=== PATIENT | female | born 1955 | race Caucasian/White ===

== ENCOUNTER 2020-03-11 10:04 | Outpatient (CLI) | payer MEDICARE, SELFPAY ==
--- NOTE | ~2020-03-11 | MM_ITS ---
EXAMINATION: MM screening lizet BI w diana HISTORY: Screening mammogram TECHNIQUE: Craniocaudal and mediolateral oblique 3-D tomosynthesis images were obtained and synthetic 2-D images were generated. CAD analysis was submitted and interpreted. COMPARISON: 01/03/2015, 03/06/2012 bilateral digital screening mammogram examinations BREAST PARENCHYMAL COMPOSITION: There are scattered areas of fibroglandular density. FINDINGS: There is no evidence of suspicious mass, calcification, or architectural distortion to sugg est malignancy in either breast. There has been no suspicious interval change. IMPRESSION: 1. No mammographic evidence of malignancy. 2. Recommend routine screening mammography in one year. BI-RADS Category 1: Negative Reviewed, dictated and finalized at location A.
--- NOTE | ~2020-03-11 | DEXA_ITS ---
Bone Density Report Name: Naheed Orellana Age: 64 Sex: Female Ethnicity: White Date of : 1955 Indication: postmenopausal; Referring Provider: MERCED*, JAN Cannon Study: Bone densitometry was performed. Exam Date: March 11, 2020 Accession number: [id number] Bone Density: Region BMD T-score Z-score Classification AP Spine (L1, L2, L3) 1.441 3.8 5.7 Normal Femoral Neck (Left) 0.849 0.0 1.6 Normal Total Hip (Left) 1.104 1.3 2.7 Normal Total Hip Bilateral Avg 1.089 1.2 2.6 Normal Femoral Neck (Right) 0.904 0.5 2.1 Normal Total Hip (Right) 1.072 1.1 2.4 Normal World Health Organization criteria for BMD impression classify patients as: Normal (T-score at or above -1.0), Osteopenia (T-score between -1.0 and -2.5), or Osteoporosis (T-score at or below -2.5). 10-year Fracture Risk: FRAX not reported because: All T-scores for Spine Total, Hip Total, Femoral Neck at or above -1.0 Clinical Information Provided by Patient: Menopause Age: 54 No regular weight bearing exercise Drinks caffeinated beverages Onset of menses at age 11 Number of children 2 Impression: The patient has normal bone mass. Discussion: BONE DENSITY IS ABOVE THE MINIMUM DESIRABLE LEVEL AT ALL SKELETAL SITES TESTED. This patient?s bone mineral density is above the minimum desirable level (T-score -1.0 or better) at all sites measured. The patient should follow a healthful lifestyle (good nutrition with adequate calcium and vitamin D, and appropriate weight-bearing exercise). Follow-Up: Consider repeating this study in 5 years or sooner if there is some new clinical indication. Reported by: ALISE on 03/11/2020 10:45:00 AM. Reviewed, dictated and finalized at location A.
== END 2020-03-11 10:05 | disposition home or self-care (01) ==
PROVIDERS: PCP Internal Medicine; Visit Provider Internal Medicine
DX: Z12.31 Encounter for screening mammogram for malignant neoplasm of breast (principal); Z78.0 Asymptomatic menopausal state
CPT/HCPCS: 77063; 77067; 77080

== ENCOUNTER 2021-08-12 07:30 | Outpatient (CLI) | payer MEDICARE, SELFPAY ==
--- NOTE | ~2021-08-12 | MM_ITS ---
EXAMINATION: MM screening lizet BI w diana HISTORY: Screening TECHNIQUE: Craniocaudal and mediolateral oblique 3-D tomosynthesis images were obtained and synthetic 2-D images were generated. CAD analysis was submitted and interpreted. COMPARISON: Comparison to multiple prior studies sequentially, with oldest reviewed study dated 03/06. BREAST PARENCHYMAL COMPOSITION: The breasts are heterogenously dense, which may obscure small masses FINDINGS: There is no evidence of suspicious mass, calcification, or architectural distortion to sugg est malignancy in either breast. There has been no suspicious interval change. IMPRESSION: 1. No mammographic evidence of malignancy. 2. Recommend routine screening mammography in one year. BI-RADS Category 1: Negative Reviewed, dictated and finalized at location A. [employer]
== END 2021-08-12 07:31 | disposition home or self-care (01) ==
LOC: ANHIMG 07:33
PROVIDERS: PCP Internal Medicine; Visit Provider Internal Medicine
DX: Z12.31 Encounter for screening mammogram for malignant neoplasm of breast (principal)
CPT/HCPCS: 77063; 77067

== ENCOUNTER 2023-01-26 13:16 | Outpatient (CLI) | payer MEDICARE, SELFPAY ==
--- NOTE | ~2023-01-26 | MM_ITS ---
EXAMINATION: MM screening lizet BI w diana HISTORY: Screening mammogram TECHNIQUE: Craniocaudal and mediolateral oblique 3-D tomosynthesis images were obtained and synthetic 2-D images were generated. CAD analysis was submitted and interpreted. COMPARISON: August 12, 2021, March 11, 2020, January 03, 2015 bilateral screening mammogram examin ations BREAST PARENCHYMAL COMPOSITION: There are scattered areas of fibroglandular density. FINDINGS: There is no evidence of suspicious mass, calcification, or architectural distortion to sugg est malignancy in either breast. There has been no suspicious interval change. IMPRESSION: 1. No mammographic evidence of malignancy. 2. Recommend routine screening mammography in one year. BI-RADS Category 1: Negative Reviewed, dictated and finalized at location A.
== END 2023-01-26 13:17 | disposition home or self-care (01) ==
LOC: ANHIMG 13:19
PROVIDERS: PCP Internal Medicine; Visit Provider Internal Medicine
DX: Z12.31 Encounter for screening mammogram for malignant neoplasm of breast (principal)
CPT/HCPCS: 77063; 77067

== ENCOUNTER 2024-11-07 00:09 | Day surgery (SDC) | payer MEDICARE, SELFPAY ==
[2024-10-25 14:42] VITALS: BMI 35.2
--- OUTSIDE RECORDS SUMMARY | 2024-11-07 00:12 | XMS_ITS | CONTINUITY OF CARE DOCUMENT ---
Author Name julio kim Address Unknown Organization [facility] Address [address] [place] [address] Phone [phone] Care Team Providers Care Terry Cloth Cutter Hand Name Role Phone Jerry Ruiz MD Unavailable JAN PATEL MD Unavailable [phone] JAN PATEL MD Unavailable [phone] [employer] Payer name Policy type / Coverage type [employer] ID [facility] [id number]
[2024-11-07 12:12] VITALS: BP 126/75; PULSE 83; RESP 16; TEMP 36.3; O2SAT 97
[2024-11-07] MEDS: LACTATED RINGERS 1,000 ML 150 ML IV CONT (12:22)
--- NOTE | 2024-11-07 12:58 | PM.IMHP ---
H&P: HPI History of Present Illness Date/Time: 11/07/24 12:58 Chief Complaint: History of colon polyps Narrative: The patient has a history of colonic polyps, the last colonoscopy was approximately 5 years ago Review of Systems Review of Systems: All systems reviewed & are unremarkable except as noted in HPI and below [facility] Social History Social History Smoking status: Never smoker Alcohol intake: current Alcohol use details: rarely Substance use: never Substance use type: does not use Living arrangements: with family Spiritual care concerns: No Meds Home Medications and Allergies Home Medications Medication Instructions Recorded Confirmed Type lisinopril 20 1 tablet feeding tube DAILY 10/25/24 11/07/24 History mg-hydrochlorothiazide 25 mg tablet naproxen 500 mg tablet 500 mg PO PRN pain 10/25/24 11/07/24 History simvastatin 20 mg tablet 20 mg PO QPM 10/25/24 11/07/24 History aspirin 81 mg tablet,delayed 81 mg PO DAILY 11/07/24 11/07/24 History release (Adult Aspirin Regimen) Allergies Allergy/AdvReac Type Severity Reaction Status Date / Time No Known Allergies Allergy Mild Verified 11/07/24 12:10 Vital Signs Vital Signs - 24 hr 11/07/24 12:12 Temperature 97.3 F L Pulse Rate 83 Respiratory Rate 16 Blood Pressure 126/75 Pulse Oximetry 97 Oxygen Delivery Room Air Exam Const: General: cooperative and healthy appearing Resp: Effort & Inspection: normal respiratory effort and able to speak in complete sentences Auscultation: clear to auscultation bilaterally Cardio: Rate: regular rate Rhythm: regular rhythm GI: Inspection: normal to inspection GI Palp: No No hepatosplenomegaly present Auscultation: normal bowel sounds Rectal Exam: deferred Skin: General skin exam: normal color Psych: Appearance: grossly normal Mental Status: mental status grossly normal Assessment and Plan Assessment and plan (1) History of colonic polyps: Code(s): Z86.0100 - Personal history of colon polyps, unspecified Status: Acute Assessment and Plan: The patient is deemed a good candidate for the procedure. Consent signed. Will proceed.
--- NOTE | 2024-11-07 13:03 | WPDANESEPPF ---
Anes - Initial Pre Proc Eval Procedure: Operation Date: 11/07/24 13:30 Proposed Procedures p Screening Colonoscopy - Red Fenton MD Date/Time: 11/07/24 13:03 Surgeon: Red Fenton MD Pre Op Diagnosis: Hx of polyps Patient Data Age: 69 Gender: F Height: 1.7 m Weight: 104.9 kg Last Vital Signs Temp 36.3 C L 11/07/24 12:12 Pulse 83 11/07/24 12:12 Resp 16 11/07/24 12:12 BP 126/75 11/07/24 12:12 Pulse Ox 97 11/07/24 12:12 O2 Del Method Room Air 11/07/24 12:12 Allergies Allergy/AdvReac Type Severity Reaction Status Date / Time No Known Allergies Allergy Mild Verified 11/07/24 12:10 Home Medications Medication Instructions Recorded Confirmed Type lisinopril 20 1 tablet feeding tube DAILY 10/25/24 11/07/24 History mg-hydrochlorothiazide 25 mg tablet naproxen 500 mg tablet 500 mg PO PRN pain 10/25/24 11/07/24 History simvastatin 20 mg tablet 20 mg PO QPM 10/25/24 11/07/24 History aspirin 81 mg tablet,delayed 81 mg PO DAILY 11/07/24 11/07/24 History release (Adult Aspirin Regimen) Patient hx anesthesia problems: none Family hx anesthesia problems: none Results Review: All pre-operative results and documents have been reviewed as part of the pre-operative evaluation. [facility] Past Medical History Medical History (Updated 11/07/24 @ 13:03 by Moy Oreilly MD) CARMENZA on CPAP HTN (hypertension) Obesity Social History Social History Smoking status: Never smoker Alcohol intake: current Alcohol use details: rarely Substance use: never Substance use type: does not use Living arrangements: with family Spiritual care concerns: No Anes - Eval Final PreProcedure Day of Procedure 11/07/24 13:03 Patient weight: obese Heart: regular rate and rhythm Lungs: clear to auscultation Airway: Mallampati scale class II Neurological: alert and oriented Last oral intake: >/= 8 hours ASA classification: III Emergent: no Anesthetic plan: proceed Anesthesia type and monitoring: general GIVS and standard monitoring Results Review: All pre-operative results and documents have been reviewed as part of the pre-operative evaluation. Informed Consent: The patient's anesthetic plan and its attendant risks and benefits were discussed with the patient/family/POA. Questions were solicited and answers provided to the satisfaction of the patient/family/POA.
[2024-11-07 13:24] VITALS: BP 107/62; PULSE 74; RESP 20; O2SAT 96
[2024-11-07 13:34] VITALS: BP 116/65; PULSE 68; RESP 18; O2SAT 97
[2024-11-07 13:44] VITALS: BP 149/81; PULSE 70; RESP 18; O2SAT 97
== END 2024-11-07 13:56 | disposition home or self-care (01) ==
PROVIDERS: PCP Internal Medicine; Visit Provider Internal Medicine Gastroenterology
PROC: 0DJD8ZZ Inspection of Lower Intestinal Tract, Via Natural or Artificial Opening Endoscopic (ICD-10-PCS; CPT 45378; principal; 2024-11-07 13:30)
DX: Z12.11 Encounter for screening for malignant neoplasm of colon (principal); I10 Essential (primary) hypertension; G47.33 Obstructive sleep apnea (adult) (pediatric); E66.9 Obesity, unspecified; Z68.36 Body mass index [BMI] 36.0-36.9, adult; Z99.89 Dependence on other enabling machines and devices; Z79.82 Long term (current) use of aspirin; Z79.1 Long term (current) use of non-steroidal anti-inflammatories (NSAID); Z86.0100 Personal history of colon polyps, unspecified
CPT/HCPCS: G0105; J2704; J7120

== ENCOUNTER 2025-04-08 07:55 | Outpatient (CLI) | payer MEDICARE, SELFPAY ==
--- NOTE | ~2025-04-08 | MR_ITS ---
EXAMINATION: MR lumbar spine wo con DATE: 04/08/2025 08:35 INDICATION: Spinal stenosis of lumbosacral region. Chronic low back pain. TECHNIQUE: Magnetic resonance imaging (MRI) of the lumbar spine was performed without intravenous contrast. Sequences included sagittal T2-weighted FSE, sagittal T2-weighted FS FSE, sagittal T1-weighted FSE, and axial T2-weighted FSE. COMPARISON: None FINDINGS: There is 26 degrees dextroscoliosis of thoracolumbar spine. Vertebral body heights are normal. There is severely decreased disc height at L2-L3, mildly decreased disc height at L3-L4, and severely decreased disc height at L4- L5 and L5-S1. The distal spinal cord signal intensity is normal. The conus medullaris is at L1. The following disc levels are specifically discussed: L1-L2: The disc does not extend beyond the endplate margin. There is moderate bilateral facet joint osteoarthritis. There is no neural foraminal stenosis. There is no central canal stenosis. L2-L3: The disc is bulging and has an annular fissure. There is severe bilateral facet joint osteoarthritis. There is mild right and moderate left neural foraminal stenosis. There is mild central canal stenosis. L3-L4: The disc is bulging and has an annular fissure. There is severe bilateral facet joint osteoarthritis. There is mild right and moderate left neural foraminal stenosis. There is moderate central canal stenosis. L4-L5: The disc is bulging and has an annular fissure. There is severe bilateral facet joint osteoarthritis. There is moderate right and mild left neural foraminal stenosis. There is mild central canal stenosis. L5-S1: The disc is bulging and has an annular fissure. There is severe bilateral facet joint osteoarthritis. There is mild right neural foraminal stenosis. There is no central canal stenosis. IMPRESSION: 1. Severe lumbar spondylosis. 2. Thoracolumbar dextroscoliosis. Reviewed, dictated and finalized at location E.
== END 2025-04-08 07:56 | disposition home or self-care (01) ==
LOC: MICIMG 07:56
PROVIDERS: PCP Internal Medicine; Visit Provider Internal Medicine
DX: M48.07 Spinal stenosis, lumbosacral region (principal); M47.896 Other spondylosis, lumbar region
CPT/HCPCS: 72148